=== PATIENT | male | born 1985 | race Caucasian/White ===

== ENCOUNTER 2019-03-20 14:19 | Emergency (ER) | payer OTHER, SELFPAY ==
[2019-03-20 14:22] VITALS: BP 132/98; PULSE 104; RESP 15; TEMP 36.5; O2SAT 99
--- NOTE | 2019-03-20 14:48 | ED.GENADUL_ITS ---
Discharge Plan Disposition Patient Disposition: HOME Condition: Good Discharge Details Chief Complaint: EarProblem Clinical Impression: Acute otitis media, left Primary Care Provider: None,None ED Provider: Burke Almeida Home Meds and New Rx's Prescriptions: New amoxicillin 500 mg capsule 500 mg PO TID 10 Days Qty: 30 RF: 0 Discharge Instructions Instructions: Otitis Media (ED) Additional Instructions: Complete antibiotics as prescribed, Tylenol and Motrin as needed for pain, return if symptoms worsen or not improving in 3 to 5 days. Medical Decision Making Left otitis media, possibly an element of externa as well. Will treat with amoxicillin as it seems to be improving his symptoms. TRACY Diaz presents for evaluation of 1 week ongoing left ear pain and fullness sensation. Symptoms improved over the past few days as he has been taking some leftover amoxicillin. He is out of this now. He denies fevers or chills. No hearing loss. Of note he has been repetitively cleaning his left ear because he had some wax accumulation and thinks he might have injured in this process. General Date/Time Provider Initiated Documentation: 03/20/19 14:32 . Related Data Home Medications Medication Instructions Recorded Confirmed amoxicillin 500 mg PO TID 10 Days #30 cap 03/20/19 Previous Rx's Medication Instructions Recorded amoxicillin 500 mg PO TID 10 Days #30 cap 03/20/19 Allergies Allergy/AdvReac Type Severity Reaction Status Date / Time No Known Allergies Allergy Unverified 03/20/19 14:28 General Stated Complaint: EarProblem ELAINA: 4 Review of Systems Constitutional Denies chills, Denies fatigue, Denies fever(s) and Denies lethargy Eyes Denies loss of vision ENT Denies nasal congestion and Denies sore throat Cardiovascular Denies chest pain and Denies dyspnea Respiratory Denies cough and Denies dyspnea Gastrointestinal Denies nausea and Denies vomiting Musculoskeletal Denies back pain, Denies muscle weakness and Denies numbness Integumentary/Breasts Denies rash Neurologic Denies focal weakness, Denies loss of vision and Denies numbness Endocrine Denies fatigue Hematologic/Lymphatic Denies easy bruising PFS Social History Smoking/Tobacco Use Status: Current every day Alcohol Intake: current Alcohol Intake frequency: a few times a week Drug use: Never Do you feel safe at home: Yes Do you feel safe in your relationship?: Yes Exam Const General: cooperative, healthy appearing and no acute distress HENMT Head: normal to inspection Ears: hearing grossly normal bilaterally Mouth: oral mucosae normal Teeth and gingiva: dentition normal Throat: posterior oropharynx normal Other: Left TM dull and bulging with some erythema which does extend into the external auditory canal. Eyes EOM: EOM intact bilaterally Neck Neck: normal visual inspection Resp Effort & Inspection: normal respiratory effort Skin General skin exam: no rashes or lesions noted Neuro General: alert, awake and oriented x3 Speech: speech normal Gait: normal gait Extrem General: normal to inspection Course Vital Signs Temperature 36.5 C 03/20/19 14:22 Pulse 104 H 03/20/19 14:22 Respiratory Rate 15 03/20/19 14:22 Blood Pressure 132/98 H 03/20/19 14:22 Pulse Oximetry 99 03/20/19 14:22 Temperature 36.5 C 03/20/19 14:22 Temperature Source Temporal Artery Scan 03/20/19 14:22 Pulse 104 H 03/20/19 14:22 Respiratory Rate 15 03/20/19 14:22 Respiratory Effort Non-Labored 03/20/19 14:26 Blood Pressure 132/98 H 03/20/19 14:22 Blood Pressure Position Sitting 03/20/19 14:22 Pulse Oximetry 99 03/20/19 14:22 Oxygen Delivery Method Nasal Cannula 03/20/19 14:22 Pain Level 5 03/20/19 14:22
== END 2019-03-20 15:04 | disposition home or self-care (01) ==
LOC: ER 15:02
PROVIDERS: Emergency Provider Physician Assistant Medical
DX: H66.92 Otitis media, unspecified, left ear (principal)
CPT/HCPCS: 99283

== ENCOUNTER 2019-06-17 14:12 | Emergency (ER) | payer SELFPAY ==
[2019-06-17 14:16] VITALS: BP 142/88; PULSE 87; RESP 16; TEMP 36.4; O2SAT 97
--- NOTE | 2019-06-17 14:52 | ED.GENADUL_ITS ---
Discharge Plan Disposition Patient Disposition: HOME Condition: Good Discharge Details Chief Complaint: EarProblem Clinical Impression: Otitis externa Primary Care Provider: None,None ED Provider: Jaye Perry Home Meds and New Rx's Prescriptions: New ofloxacin 0.3 % drops 10 drp OT DAILY 7 Days RF: 0 Discharge Instructions Instructions: Otitis Externa (ED) Additional Instructions: Use Motrin or Tylenol for soreness if needed. Avoid use of Q-tips. Use drops into your ear as prescribed once daily while laying on your side for 15 to 20 minutes per dosing. Avoid getting any water into your ear. Follow-up with agricultural research director if not improving in 3 to 5 days, or for return of infection in 1 within month Return for increasing pain, drainage from the ear, hearing change, alarming symptoms are worsening as discussed sooner if needed Referrals: Maximino Luque MD [ [facility] STAFF PHYSICIAN] - Medical Decision Making 33-year-old who presents with ear pain on exam has purulent drainage in the external canal consistent with otitis externa not requiring wick as the canal remains patent. No obvious TM rupture. Mild TMJ tenderness is also noted on the affected side. Did recommend avoidance of gum chewing and conservative treatments for TMJ. Ofloxacin otic was prescribed for appropriate management. Counseled regarding avoidance of getting fluid in the ear and appropriate use of antibiotic. Recommended ENT referral if unimproved with this course of treatment as this is his second evaluation for ear pain in 1 month. HPI General Date/Time Provider Initiated Documentation: 06/17/19 14:28 . HPI Narrative: 33-year-old patient presents for complaint of right ear pain. Patient reports he did have an ear infection approximately 1 month ago. Patient denies any other trauma to the ear. Patient does report his partner tried to clean out his left ear. Denies any bleeding or discharge. Patient reports ear is worse with palpation of the area. Denies significant hearing changes. Denies fever, chills, nausea, vomiting. Denies any ill feeling at this time. No cough or URI symptoms. Patient is a gum chewer. Denies headache or dizziness. No neck pain associated. Related Data Home Medications Medication Instructions Recorded Confirmed ofloxacin 10 drp OT DAILY 7 Days ml 06/17/19 Previous Rx's Medication Instructions Recorded ofloxacin 10 drp OT DAILY 7 Days ml 06/17/19 Allergies Allergy/AdvReac Type Severity Reaction Status Date / Time No Known Allergies Allergy Unverified 06/17/19 14:20 General Stated Complaint: EarProblem ELAINA: 4 Review of Systems Review of Systems ROS Unobtainable: All systems reviewed & are unremarkable except as noted in HPI and below Constitutional Constitutional: Denies chills and Denies fever(s) ENT Ears, Nose, Mouth, and Throat: Denies vertigo, Denies dizziness, Denies ear discharge, Reports otalgia, Denies nose pain, Denies post nasal drip, Denies sinus pain, Denies sinus pressure and Denies sore throat Respiratory Respiratory: Denies cough Neurologic Neurologic: Denies vertigo and Denies dizziness PFS Social History Smoking/Tobacco Use Status: Current every day Alcohol Intake: current Alcohol Intake frequency: a few times a week Drug use: Never Do you feel safe at home: Yes Do you feel safe in your relationship?: Yes Exam Narrative Exam Narrative: CONST: Healthy appearing patient, in no acute distress. Well hydrated. Alert and alert. HENMT: Head nomocephalic, normal to inspection. Atraumatic. Hearing grossly normal. Patient with pain with tracheal tug. No obvious skin changes to the pinna. Patient with discharge in the external canal present consistent with otitis externa. Patient does also have right-sided TMJ tenderness. EYES: General normal appearance. Alignment normal. Eyelids normal. Conjunctiva normal. NECK: Normal visual inspection. FROM. Trachea midline. No Midline tenderness. CHEST: Normal insepection of the chest. MUSCULOSKELETAL: Normal Gait. FROM of all extremities. SKIN: Normal. Dry. No rashes. NEURO: Alert and awake. Speech clear. PSYCH: Normal affect. Cooperative. Course Vital Signs Vital signs: Vital Signs Temperature 36.4 C L 06/17/19 14:16 Pulse 87 06/17/19 14:16 Respiratory Rate 16 06/17/19 14:16 Blood Pressure 142/88 H 06/17/19 14:16 Pulse Oximetry 97 06/17/19 14:16 Temperature 36.4 C L 06/17/19 14:16 Temperature Source Skin 06/17/19 14:16 Pulse 87 06/17/19 14:16 Respiratory Rate 16 06/17/19 14:16 Respiratory Effort 09/27/19 14:20 Blood Pressure 142/88 H 06/17/19 14:16 Blood Pressure Position Sitting 06/17/19 14:16 Pulse Oximetry 97 06/17/19 14:16 Oxygen Delivery Method Room Air 06/17/19 14:16 Oxygen Flow Rate 0 06/17/19 14:16 Pain Level 4 06/17/19 14:20
[2019-06-17 15:14] VITALS: BP 142/88; PULSE 87; RESP 16; TEMP 36.4; O2SAT 97
== END 2019-06-17 15:15 | disposition home or self-care (01) ==
PROVIDERS: Emergency Provider Physician Assistant
DX: H60.501 Unspecified acute noninfective otitis externa, right ear (principal)
CPT/HCPCS: 99283